=== PATIENT | female | born 1955 | race Caucasian/White ===

== ENCOUNTER 2021-08-07 19:53 | Emergency (ER) | payer MEDICARE, OTHER ==
[~2021-08-07] VITALS: Ht 160 cm; Wt 81.6 kg
[2021-08-07] MEDS ORDERED: SODIUM CHLORIDE 0.9% 500 ML IV ONE (20:45)
[2021-08-07] MEDS ORDERED: ACETAMINOPHEN 325 MG TAB PO ONE (20:45)
[2021-08-07] MEDS ORDERED: ONDANSETRON HCL 4 MG/2 ML VIAL IV ONE (20:45)
[2021-08-07 21:13] LABS: Basophils # (auto) 0.1 10 ^3/uL (0-0.2); Basophils % (auto) 1.4 % (0.0-2.0); Eosinophils # (auto) 0 10 ^3/uL (0-0.8); Eosinophils % (auto) 0.1 % (0.0-7.0); Hematocrit 48.2 % (36.0-46.0); Hemoglobin 17.1 g/dL (12.2-16.2); Lymphocytes # (auto) 1.2 10 ^3/uL (0.4-5.4); Lymphocytes % (auto) 17.9 % (10.0-50.0); Mean Corpuscular Hgb Conc. 35.5 g/dL (32.0-36.0); Mean Corpuscular Volume 90.2 fL (80.0-100.0); Monocytes # (auto) 0.3 10 ^3/uL (0-1.3); Monocytes % (auto) 4.9 % (0.0-12.0); Neutrophils # (auto) 5.3 10 ^3/uL (1.6-8.6); Neutrophils % (auto) 75.7 % (37.0-80.0); Nucleated Red Blood Cells % 0.2 %; Red Blood Cells 5.35 10^6/uL (4.0-5.20)
[2021-08-07] MEDS ORDERED: METOCLOPRAMIDE HCL 5MG/ml INJ 2ml VIAL IV ONE (21:15)
[2021-08-07 21:34] LABS: Albumin 4.6 g/dL (3.4-5.0); Calcium 10.5 mg/dL (8.5-10.1); Potassium 3.8 mmol/L (3.5-5.1)
[2021-08-07 21:36] LABS: BUN/Creatinine Ratio 17.2; Bilirubin, Total 0.7 mg/dL (0.2-1.0); Total Protein 8.6 g/dL (6.4-8.2)
[2021-08-07 21:45] LABS: Lactic Acid w/Reflex 2.6 mmol/L (0.4-2.0)
[2021-08-08] VITALS: BP 119/65
[2021-08-08] MEDS ORDERED: DexAMETHasone SOD PHOS 10MG/1ML VIAL INJ IV ONE
== END 2021-08-08 01:06 | disposition home or self-care (01) ==
LOC: EDBD 19:53 → ER 19:56
DX: U07.1 COVID-19 (principal); R05.9 Cough, unspecified; J45.909 Unspecified asthma, uncomplicated; I10 Essential (primary) hypertension; E11.9 Type 2 diabetes mellitus without complications; Z88.0 Allergy status to penicillin
CPT/HCPCS: 36415; 71045; 80053; 83605; 85025; 87426; 87804; 96374; 96375; 99284; J2405; J2765

== ENCOUNTER 2024-09-20 09:49 | Inpatient (IN) | payer MEDICARE ==
[~2024-09-20] VITALS: Ht 157.5 cm; Wt 79.9 kg
--- NOTE | 2024-09-20 10:12 | ED.PDOC ---
History of Present Illness HPI Comments 69F presents to the Er w/ prior MHx of Asthma, High Lipids, Pre-DM, HTN;SHx of Cyst Removal, Tubal Ligation, Tonsillectomy and the c/c of SOB. pt reports on being SOB x2 days w/ sternal Chest pressure, associated w/ N/, Dry heaves and the pt feeling "clammy" at home. Denies chills, fever, /V/D. No other ass ociated symptoms, modifiers, recent injuries or sick contacts present at this time. 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 Family History Family History: Reviewed,noncontributory to illness, Unknown Social History Smoker: Non-Smoker Alcohol: Denies ETOH Use Drugs: Denies Drug Use Lives In: Home Constitutional: denies: chills, diaphoresis, fatigue, fever, malaise, sweats, weakness, others EENTM: denies: blurred vision, double vision, ear bleeding, ear discharge, ear drainage, ear pain, ear ringing, eye pain, eye redness, hearing loss, mouth pain, mouth swelling, nasal discharge, nose bleeding, nose congestion, nose pain, photophobia, tearing, throat pain, throat swelling, voice changes, others Respiratory: reports: shortness of breath; denies: cough, hemoptysis, orthopnea, SOB at rest, SOB with excertion, stridor, wheezing, others Cardiovascular: reports: chest pain; denies: dizzy spells, diaphoresis, Dyspnea on exertion, edema, irregular heart beat, left arm pain, lightheadedness, palpitations, PND, syncope, others Gastrointestinal: denies: abdomen distended, abdominal pain, blood streaked bowels, constipated, diarrhea, dysphagia, difficulty swallowing, hematemesis, melena, nausea, poor appetite, poor fluid intake, rectal bleeding, rectal pain, vomiting, others Genitourinary: denies: abnormal vagina bleeding, burning, dyspareunia, dysuria, flank pain, frequency, hematuria, incontinence, pain, , vagina discharge, urgency, others Neurological: denies: dizziness, fainting, headache, left sided numbness, left sided weakness, numbness, paresthesia, pre-existing deficit, right sided numbness, right sided weakness, seizure, speech problems, tingling, tremors, weakness, others Musculoskeletal: denies: back pain, gout, joint pain, joint swelling, muscle pain, muscle stiffness, neck pain, others Integumetry: denies: bruises, change in color, change in hair/nails, dryness, laceration, lesions, lumps, rash, wounds, others Allergic/Immunocompromised: denies: Difficulty Healing, Frequent Infections, Hives, Itching, others Hematologic/Lymphatic: denies: anemia, blood clots, easy bleeding, easy bruising, swollen glands, others Endocrine: denies: excessive hunger, excessive sweating, excessive thirst, excessive urination, flushing, intolerance to cold, intolerance to heat, unexplained weight gain, unexplained weight loss, others Psychiatric: denies: anxiety, bipolar disorder, depression, hopeless, panic disorder, schizophrenia, sleepless, suicidal, others All Other Systems: Reviewed and Negative Physical Exam General Appearance: Moderate Distress HEENT: Normal ENT Inspection, Pharynx Normal, TMs Normal Neck: Full Range of Motion, Non-Tender, Normal, Normal Inspection Respiratory: Chest Non-Tender, Decreased Breath Sounds, Lungs Clear, No Accessory Muscle Use, Respiratory Distress Cardiovascular: No Edema, No JVD, No Murmur, No Gallop, Tachycardia Breast Exam: Deferred Gastrointestinal: No Organomegaly, Non Tender, No Pulsatile Mass, Normal Bowel Sounds, Soft Genitalia: Deferred Pelvic: Deferred Rectal: Deferred Extremities: No calf tenderness, Normal capillary refill, Normal inspection, Normal range of motion, Non-tender, No pedal edema Musculoskeletal : Apperance: Normal Neurologic: Alert, 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 Was a procedure done?: No EKG EKG : Pulse Rate (adult): 105 Harvey: Normal Cardiac Rhythm: NSR Block: None Hypertrophy: LAE, LVH ST: Normal Differential Dx Considerations may include: Generalized weakness, ACS, TN X-Ray, Labs, Meds, VS Vital Signs Date Time Temp Pulse Resp B/P (MAP) Pulse Ox O2 Delivery O2 Flow Rate FiO2 09/20/24 10:12 105 09/20/24 10:07 105 09/20/24 10:05 98.7 105 16 114/92 (99) 96 98.7 Lab Test 09/20/24 11:23 09/20/24 10:23 Range/Units Troponin I High Sensitivity Pending 76 *H </=34 ng/L White Blood Count 10.0 4.4-10.8 10^3/uL Red Blood Count 5.17 4.0-5.20 10^6/uL Hemoglobin 16.5 H 12.2-16.2 g/dL Hematocrit 48.0 H 36.0-46.0 % Mean Corpuscular Volume 92.8 80.0-100.0 fL Mean Corpuscular Hemoglobin 32.0 28.0-32.0 pg Mean Corpuscular Hemoglobin Concent 34.5 32.0-36.0 g/dL Red Cell Distribution Width 14.2 11.8-14.3 % Platelet Count 158 140-450 10^3/uL Mean Platelet Volume 10.7 6.9-10.8 fL Neutrophils (%) (Auto) 85.4 H 37.0-80.0 % Lymphocytes (%) (Auto) 9.7 L 10.0-50.0 % Monocytes (%) (Auto) 4.0 0.0-12.0 % Eosinophils (%) (Auto) 0.2 0.0-7.0 % Basophils (%) (Auto) 0.7 0.0-2.0 % Neutrophils # (Auto) 8.5 1.6-8.6 10 ^3/uL Lymphocytes # (Auto) 1.0 0.4-5.4 10 ^3/uL Monocytes # (Auto) 0.4 0-1.3 10 ^3/uL Eosinophils # (Auto) 0 0-0.8 10 ^3/uL Basophils # (Auto) 0.1 0-0.2 10 ^3/uL Nucleated Red Blood Cells 0.2 % D-Dimer, Quantitative 0.26 0.0-0.49 mg/L FEU Sodium Level 137 136-145 mmol/L Potassium Level 3.8 3.5-5.1 mmol/L Chloride Level 103 98-107 mmol/L Carbon Dioxide Level 23 20-31 mmol/L Anion Gap 11 5-15 Blood Urea Nitrogen 8 L 9-23 mg/dL Creatinine 0.68 0.550-1.02 mg/dL Glomerular Filtration Rate Calc 93 >90 mL/min BUN/Creatinine Ratio 11.8 10.0-20.0 Serum Glucose 140 H 74-106 mg/dL Calcium Level 10.1 8.7-10.4 mg/dL B-Type Natriuretic Peptide 564.21 0-100 pg/mL The patient's CBC is within normal limits The chemistry panel is within normal limits The BNP is 564.21 The 1st troponin came back at 76 We are awaiting the 2nd troponin to come back The D-dimer is within normal limits. At this time, the patient was being admitted Images Reviewed?: Images reviewed and evaluated by me Time of 1ST Reevaluation: 10:30 Reevaluation 1ST: Unchanged Patient Education/Counseling: Diagnosis, Treatment, Prognosis Family Education/Counseling: No Family Present Departure 1 Departure Time of Disposition: 11:33 Impression: Primary Impression: Shortness of breath Additional Impressions: Acute myocardial ischemia Elevated troponin Disposition: ADMITTED INPATIENT Admit to: [facility] Condition: Fair Critical Care Note Critical Care Time?: Yes (45 min-critical care time only) Stability Stability form required: Yes Unstable for transfer: Telemetry monitoring (Telemetry monitoring required), ED Physician Assesment (Clinical assesment) Heart Score Heart Score: Heart Score Response (Comments) Value History Moderate Suspicious 1 EKG Repolarization Disturb 1 Age >65 2 Risk Factors >3 or Hx ASHD 2 Troponin 1-2 x's Normal limit 1 Total 7 I personally scribed for CELSO GREENWOOD MD ([email or web address]) on 09/20/24 at 10:12. Electronically submitted by Eusebio Gordon ([email or web address]). CELSO GREENWOOD MD September 20, 2024 10:12
[2024-09-20 10:52] LABS: Basophils # (auto) 0.1 10 ^3/uL (0-0.2); Basophils % (auto) 0.7 % (0.0-2.0); Eosinophils # (auto) 0 10 ^3/uL (0-0.8); Eosinophils % (auto) 0.2 % (0.0-7.0); Hemoglobin 16.5 g/dL (12.2-16.2); Lymphocytes % (auto) 9.7 % (10.0-50.0); Mean Corpuscular Hgb Conc. 34.5 g/dL (32.0-36.0); Mean Corpuscular Volume 92.8 fL (80.0-100.0); Monocytes # (auto) 0.4 10 ^3/uL (0-1.3); Neutrophils # (auto) 8.5 10 ^3/uL (1.6-8.6); Neutrophils % (auto) 85.4 % (37.0-80.0); Nucleated Red Blood Cells % 0.2 %; Platelet Count (auto) 158 10^3/uL (140-450); Red Blood Cells 5.17 10^6/uL (4.0-5.20); Red Cell Distribution Width 14.2 % (11.8-14.3)
--- NOTE | 2024-09-20 10:56 | DVH ---
XY CHEST XRAY 1 VIEW, HISTORY: sob COMPARISON: CHEST PORTABLE on DOS: 08/07/21 CHEST PORTABLE on DOS: 08/07/21 TECHNICAL DATA: 1 view of the chest was obtained. FINDINGS: Lines and tubes: None Cardiomediastinal silhouette: normal Pulmonary vasculature: normal Lung expansion: normal Lung airspace: normal Lung interstitium: normal Pleura: normal Pneumothorax: no Bones: Unremarkable Other: no IMPRESSION: No acute intrathoracic abnormality.
[2024-09-20 11:01] LABS: Chloride 103 mmol/L (98-107); Potassium 3.8 mmol/L (3.5-5.1); Sodium 137 mmol/L (136-145)
[2024-09-20 11:02] LABS: Anion Gap 11 (5-15); Carbon Dioxide 23 mmol/L (20-31)
[2024-09-20 11:03] LABS: Calcium 10.1 mg/dL (8.7-10.4)
[2024-09-20 11:08] LABS: BUN/Creatinine Ratio 11.8 (10.0-20.0); Blood Urea Nitrogen 8 mg/dL (9-23); Glucose 140 mg/dL (74-106)
[2024-09-20 11:50] VITALS: PULSE 82; RESP 16; O2SAT 94
[2024-09-20 12:40] LABS: Urine Bacteria None Seen /hpf (None Seen)
--- NOTE | 2024-09-20 12:41 | DVHHP2 ---
History of Present Illness History of Present Illness 69F presents to the Er w/ prior MHx of Asthma, High Lipids, Pre-DM, HTN;SHx of Cyst Removal, Tubal Ligation, Tonsillectomy and the c/c of SOB. pt reports on being SOB x2 days w/ sternal Chest pressure, associated w/ N/, Dry heaves and the pt feeling "clammy" at home. she also has QUESADA, PND, orthopnea. has pleuritic chest pain with dry cough x1-2 week. Denies chills, fever, /V/D. No other associated symptoms, modifiers, recent injuries or sick contacts present at this time. Review of Systems Review of Systems as hpi Allergies: Coded Allergies: Penicillins (Verified Allergy, Unknown, 08/07/21) Exam Vital Signs Vital Signs Date Time Temp Pulse Resp B/P (MAP) Pulse Ox O2 Delivery O2 Flow Rate FiO2 09/20/24 11:50 98.2 82 16 149/82 (104) 94 98.2 09/20/24 11:50 Room Air* 0 21 Exam GEN: Healthy appearing, well-developed, NAD. HEENT: NC/AT; MMM. CV: RRR, no m/r/g. LUNGS: Rales up to middle lobes bilaterally ABD: Soft, NT/ND, NBS, no masses or organomegaly. EXT: skin Warm, well perfused. no rashes. Trace to +1 bilateral pitting edema NEURO: Ambulating with no limitations. No focal deficits. Labs/Xrays Labs Test 09/20/24 11:23 09/20/24 10:23 Range/Units Troponin I High Sensitivity 82 *H </=34 ng/L White Blood Count 10.0 4.4-10.8 10^3/uL Red Blood Count 5.17 4.0-5.20 10^6/uL Hemoglobin 16.5 H 12.2-16.2 g/dL Hematocrit 48.0 H 36.0-46.0 % Mean Corpuscular Volume 92.8 80.0-100.0 fL Mean Corpuscular Hemoglobin 32.0 28.0-32.0 pg Mean Corpuscular Hemoglobin Concent 34.5 32.0-36.0 g/dL Red Cell Distribution Width 14.2 11.8-14.3 % Platelet Count 158 140-450 10^3/uL Mean Platelet Volume 10.7 6.9-10.8 fL Neutrophils (%) (Auto) 85.4 H 37.0-80.0 % Lymphocytes (%) (Auto) 9.7 L 10.0-50.0 % Monocytes (%) (Auto) 4.0 0.0-12.0 % Eosinophils (%) (Auto) 0.2 0.0-7.0 % Basophils (%) (Auto) 0.7 0.0-2.0 % Neutrophils # (Auto) 8.5 1.6-8.6 10 ^3/uL Lymphocytes # (Auto) 1.0 0.4-5.4 10 ^3/uL Monocytes # (Auto) 0.4 0-1.3 10 ^3/uL Eosinophils # (Auto) 0 0-0.8 10 ^3/uL Basophils # (Auto) 0.1 0-0.2 10 ^3/uL Nucleated Red Blood Cells 0.2 % D-Dimer, Quantitative 0.26 0.0-0.49 mg/L FEU Sodium Level 137 136-145 mmol/L Potassium Level 3.8 3.5-5.1 mmol/L Chloride Level 103 98-107 mmol/L Carbon Dioxide Level 23 20-31 mmol/L Anion Gap 11 5-15 Blood Urea Nitrogen 8 L 9-23 mg/dL Creatinine 0.68 0.550-1.02 mg/dL Glomerular Filtration Rate Calc 93 >90 mL/min BUN/Creatinine Ratio 11.8 10.0-20.0 Serum Glucose 140 H 74-106 mg/dL Calcium Level 10.1 8.7-10.4 mg/dL B-Type Natriuretic Peptide 564.21 0-100 pg/mL Assessment/Plan Assessment/Plan Acute decompensated heart failure, diastolic likely, in exacerbation Acute bronchitis, viral likely Chest pain, ACS rule out Troponinemia BNP elevated Neutrophilia Chronic NSAID abuse History GERD ? History hiatal hernia History asthma History hyperlipidemia Prediabetes History hypertension - patient with shortness of breath, chest pain, - chest pain protocol -Tele -IV Lasix 20 b.i.d. -accuchecks achs -a1c and labs check -Daily labs, minimal CMP -Echo -Azithromycin IV antibiotic -Continue home medications -Duo nebs p.r.n. -Hold off NSAIDs - continue home meds (holding simvastatin 40 for inpatient, continue losartan 50, holding hydrochlorothiazide 25 for diuresis,, try to replace Lumigan eye drop,) Diet cardiac/diabetic DVT Lovenox GI prophylaxis-Protonix Tele Full code Plan discussed with: Patient Date of Service: September 20, 2024 Billing Provider: THIEN VO MD Common Visit Codes: [id number] INP/OBS CARE (HIGH) Secondary Visit Codes: [id number] CARE PLAN 30 MINUTES THIEN VO MD September 20, 2024 12:41
[2024-09-20 12:45] LABS: Urine Blood TRACE /uL (Negative); Urine Clarity Clear (Clear); Urine Color Light-Yellow (Yellow); Urine Protein, UAD Negative (Negative); Urine Specific Gravity 1.005 (1.001-1.035); Urine Squamous Epithelial Cell None Seen /hpf (<5); Urine Urobilinogen Normal (Negative); Urine WBC < 1 /HPF (0-5)
[2024-09-20] MEDS ORDERED: DEXTROSE (50%) 50ML SYRG IV PRN (12:45)
[2024-09-20] MEDS ORDERED: ACETAMINOPHEN 325 MG TAB PO PRN (12:45)
[2024-09-20] MEDS ORDERED: MORPHINE SULFATE INJ 2 MG/ml SYRG IV PRN (12:45)
[2024-09-20] MEDS ORDERED: HYDROcodone-ACET 5/325MG TAB PO PRN (12:45)
[2024-09-20] MEDS ORDERED: NITROGLYCERIN 0.4 MG SL TAB SL PRN (12:45)
[2024-09-20] MEDS: FUROSEMIDE 20 MG/2 ML VIAL IV ONE (12:45)
[2024-09-20] MEDS ORDERED: ONDANSETRON HCL 4 MG/2 ML VIAL IV PRN (12:45)
[2024-09-20 14:46] VITALS: BP_SYST 149; BP_SYST 184; BP_DIAS 73; BP_DIAS 83; PULSE 84; PULSE 92; RESP 14; RESP 18; TEMP 98.3; O2SAT 94; O2SAT 96
[2024-09-20] MEDS: PANTOPRAZOLE 40 MG/10 ML VIAL INJ IV ONE (14:57)
[2024-09-20] MEDS: LOSARTAN POTASSIUM 50 MG TAB PO SCH (14:58)
[2024-09-20] MEDS: ENOXAPARIN SOD 40 MG/0.4 ML SYRINGE SC SCH (14:58)
[2024-09-20] MEDS: AZITHROMYCIN 500MG/ 250ML 250 ML IV ONE (15:22)
[2024-09-20] MEDS: ACCU-CHEK COMFORT CURVE STRIP VI SCH (17:00)
[2024-09-20 17:27] VITALS: BP 153/84; PULSE 95; RESP 18; TEMP 98.1; O2SAT 95
[2024-09-20] MEDS: FUROSEMIDE 20 MG/2 ML VIAL IV SCH (18:19)
[2024-09-20 20:00] VITALS: PULSE 95; PULSE 98; RESP 16
[2024-09-20 21:00] VITALS: BP 136/66; PULSE 97; RESP 17; TEMP 97.1; O2SAT 91
[2024-09-21] VITALS (8 sets, daily range): BP systolic 104–147; BP diastolic 66–84; PULSE 88–110; RESP 17–18; TEMP 96.1–98.6; O2SAT 91–99
[2024-09-21 07:01] LABS: Basophils # (auto) 0.1 10 ^3/uL (0-0.2); Basophils % (auto) 0.9 % (0.0-2.0); Eosinophils # (auto) 0.2 10 ^3/uL (0-0.8); Eosinophils % (auto) 2.9 % (0.0-7.0); Hematocrit 48.6 % (36.0-46.0); Lymphocytes # (auto) 2.3 10 ^3/uL (0.4-5.4); Lymphocytes % (auto) 27.5 % (10.0-50.0); Mean Corpuscular Hemoglobin 32.2 pg (28.0-32.0); Mean Corpuscular Hgb Conc. 34.9 g/dL (32.0-36.0); Mean Corpuscular Volume 92.2 fL (80.0-100.0); Monocytes # (auto) 0.8 10 ^3/uL (0-1.3); Monocytes % (auto) 9.7 % (0.0-12.0); Platelet Count (auto) 187 10^3/uL (140-450); Red Blood Cells 5.27 10^6/uL (4.0-5.20); Red Cell Distribution Width 14.1 % (11.8-14.3); White Blood Cell 8.5 10^3/uL (4.4-10.8)
[2024-09-21 07:16] LABS: Alanine Aminotransferase 25 U/L (7-40); Albumin 4.5 g/dL (3.2-4.8); Alkaline Phosphatase 85 U/L (46-116); Anion Gap 10 (5-15); Aspartate Aminotransferase 18 U/L (13-40); BUN/Creatinine Ratio 14.8 (10.0-20.0); Blood Urea Nitrogen 12 mg/dL (9-23); Calcium 10.3 mg/dL (8.7-10.4); Carbon Dioxide 25 mmol/L (20-31); Chloride 103 mmol/L (98-107); Sodium 138 mmol/L (136-145); Total Protein 7.3 g/dL (5.7-8.2)
[2024-09-21 07:26] LABS: Bilirubin, Total 1.8 mg/dL (0.2-1.0); Glucose 116 mg/dL (74-106); Potassium 3.2 mmol/L (3.5-5.1)
[2024-09-21] MEDS: AZITHROMYCIN 500MG/ 250ML 250 ML IV SCH (08:55)
[2024-09-21] MEDS: PANTOPRAZOLE 40 MG/10 ML VIAL INJ IV SCH (10:00)
--- NOTE | 2024-09-21 10:27 | DVHSR ---
APPROVED REPORT EXAM: Two-dimensional and M-mode echocardiogram with Doppler and color Doppler. Blood Pressure: 129/68 mmHg INDICATION CHF syndrome, eval EF RISK FACTORS Height: 62, Weight: 176 DIMENSIONS LVDd3.6 (3.8-5.7cm)LA (2D)4.1 (1.9-4.0cm)Aortic Root3.5 (2.0-3.7cm) LVDs2.2 (2.5-4.0cm)LA (MM) (1.9-4.0cm)Aortic Cusp Exc (1.5-2.0cm) EF (%) 70.0 (55-70%)Rt. Atrium3.1 (1.9-4.0cm)Asc. Aorta cm Mitral Valve MitralMitral Stenosis E wave0.77m/sMV Mean GR.6mmHg A wave1.70m/sMV Peak GR.14mmHg E/A ratio0.52D MVAcm2 DECEL [id number] 1/2 [id number] IVRTmsDop MVA2.97cm2 Aortic Valve Aortic ValveAortic Stenosis LVOT Diameter1.4 (1.8-2.4cm)Doppler AVAcm2 Pulmonic Valve V21.49m/s Tricuspid Valve TR Velocity2.23m/s [id number] Other Information Technically limited study due to valsalva performed at the end of study before measurements. Conclusion lvef 65% severe concentric LVH small LV cavity normal rv function small pericardial effusion with significant fibrinous material in the space , no HD compromise no severe valve abnormalities noted
[2024-09-21] MEDS: POTASSIUM CHL 20 Meq TABLET PO ONE (14:00)
[2024-09-21] MEDS: POTASSIUM CHL 20MEQ/50ML 50 ML IV ONE (14:15)
[2024-09-21] MEDS: SODIUM CHL 0.9% 100 ML IV ONE (14:15)
--- NOTE | 2024-09-21 17:31 | DVHPN2 ---
Subjective Update 09/21 echo with preserved ejection fraction consistent with hypertensive cardiomyopathy. Patient approaching euvolemia we will slow down the diuresis to 20 IV daily. Start Jardiance and assess tolerance. Continue cardiac diet and water intake restrictions Reviewed: H&P Changes from previous H/P or p: No Changes General: Per HPI Objective Vitals Vital Signs Date Time Temp Pulse Resp B/P (MAP) Pulse Ox O2 Delivery O2 Flow Rate FiO2 09/21/24 13:30 98.5 95 18 147/84 (105) 96 98.5 09/21/24 08:00 Room Air* 0 21 Intake/Output Intake and Output 09/21/24 07:00 Intake Total 500 ml Balance 500 ml Intake Oral 250 ml IV Total 250 ml # Voids 5 Exam GEN: Healthy appearing, well-developed, NAD. HEENT: NC/AT; MMM. CV: RRR, no m/r/g. LUNGS: Rales up to bibasilar bilaterally ABD: Soft, NT/ND, NBS, no masses or organomegaly. EXT: skin Warm, well perfused. no rashes. Trace pitting edema NEURO: Ambulating with no limitations. No focal deficits. Medications Current Medications Medications Dose Ordered Sig/Domingo Route Start Time Stop Time Status Last Admin Dose Admin Acetaminophen/ Hydrocodone Bitart 1 tab Q4HP PRN PO 09/20/24 12:45 Ondansetron HCl 4 mg Q4HP PRN IV 09/20/24 12:45 Enoxaparin Sodium 40 mg DAILY SC 09/20/24 12:52 09/21/24 08:54 40 MG Acetaminophen 650 mg Q6HP PRN PO 09/20/24 12:45 Nitroglycerin 0.4 mg Q5MINP PRN SL 09/20/24 12:45 Morphine Sulfate 2 mg Q30M PRN IV 09/20/24 12:45 Azithromycin 250 ml @ 125 mls/hr DAILY IV 09/21/24 10:00 09/21/24 08:55 125 MLS/HR Diagnostic Test (Pha) 1 strip ACHS 09/20/24 17:00 09/21/24 17:27 1 STRIP Dextrose 50 ml UD PRN IV 09/20/24 12:45 Losartan Potassium 50 mg DAILY PO 09/20/24 12:50 09/21/24 08:54 50 MG Empaglifozin 10 mg DAILY PO 09/22/24 10:00 Furosemide 20 mg DAILY IV 09/22/24 10:00 Pantoprazole Sodium 40 mg DAILY@0600 PO 09/22/24 06:00 Laboratory Results Laboratory Tests 09/21/24 06:28 Chemistry Test 09/21/24 06:28 Albumin 4.5 g/dL (3.2-4.8) Calcium Level 10.3 mg/dL (8.7-10.4) Total Protein 7.3 g/dL (5.7-8.2) LFT Test 09/21/24 06:28 Alanine Aminotransferase (ALT) 25 U/L (7-40) Alkaline Phosphatase 85 U/L (46-116) Aspartate Amino Transferase (AST) 18 U/L (13-40) Total Bilirubin 1.8 mg/dL (0.2-1.0) H Urinalysis Test 09/20/24 12:39 Urine Color Light-yellow (Yellow) Urine Clarity Clear (Clear) Urine pH 6.0 (5.0-9.0) Urine Specific [place] 1.005 (1.001-1.035) Urine Protein Negative (Negative) Urine Ketones Negative (Negative) Urine Blood Trace /uL (Negative) H Urine Nitrite Negative (Negative) Urine Bilirubin Negative (Negative) Urine Urobilinogen Normal mg/dL (Negative) Urine Leukocyte Esterase Negative /uL (Negative) Urine RBC 1 /hpf (0 - 4) Urine Microscopic WBC < 1 /HPF (0-5) Urine Squamous Epithelial Cells None seen /hpf (<5) Urine Bacteria None seen /hpf (None Seen) Urine Glucose Normal mg/dL (Normal) Labs and/or images reviewed: Labs reviewed by me, Image(s) reviewed by me Assessment/Plan Assessment/Plan Update 09/21 echo with preserved ejection fraction consistent with hypertensive cardiomyopathy. Patient approaching euvolemia we will slow down the diuresis to 20 IV daily. Start Jardiance and assess tolerance. Continue cardiac diet and water intake restrictions Acute decompensated heart failure, diastolic likely, in exacerbation Acute bronchitis, viral likely Chest pain, ACS rule out Troponinemia BNP elevated Neutrophilia Chronic NSAID abuse History GERD ? History hiatal hernia History asthma History hyperlipidemia Prediabetes History hypertension - patient with shortness of breath, chest pain, - chest pain protocol -Tele -IV Lasix 20 b.i.d. -accuchecks achs -a1c and labs check -Daily labs, minimal CMP -Echo -Azithromycin IV antibiotic -Continue home medications -Duo nebs p.r.n. -Hold off NSAIDs - continue home meds (holding simvastatin 40 for inpatient, continue losartan 50, holding hydrochlorothiazide 25 for diuresis,, try to replace Lumigan eye drop,) Diet cardiac/diabetic DVT Lovenox GI prophylaxis-Protonix Tele Full code Plan discussed with: Patient My Orders Orders - THIEN VO MD Procedure Category Date Status Time Empagliflozin PHA 09/22/24 In Process (Jardiance) 10:00 Furosemide Injection PHA 09/22/24 In Process (Lasix Injection) 10:00 Maintain Fluid JUAN 09/21/24 In Process Restrictions 13:49 Strict I & O JUAN 09/21/24 In Process 13:49 Pantoprazole Tablet PHA 09/22/24 In Process (Protonix Tablet) 06:00 Date of Service: September 21, 2024 Billing Provider: THIEN VO MD Common Visit Codes: [id number] INP/OBS CARE(HIGH) THIEN VO MD September 21, 2024 17:31
[2024-09-21] MEDS ORDERED: FUROSEMIDE 40 MG/4 ML VIAL IV SCH (18:00)
[2024-09-22 01:00] VITALS: BP 89/55; PULSE 93; RESP 17; TEMP 98; O2SAT 94
[2024-09-22 05:00] VITALS: BP 121/44; PULSE 86; RESP 18; TEMP 98; O2SAT 92
[2024-09-22] MEDS: PANTOPRAZOLE 40 MG TAB PO SCH (06:00)
[2024-09-22 07:06] LABS: Alanine Aminotransferase 23 U/L (7-40); Albumin 4.3 g/dL (3.2-4.8); Alkaline Phosphatase 79 U/L (46-116); Anion Gap 9 (5-15); Aspartate Aminotransferase 16 U/L (13-40); BUN/Creatinine Ratio 23.8 (10.0-20.0); Bilirubin, Total 1.4 mg/dL (0.2-1.0); Blood Urea Nitrogen 19 mg/dL (9-23); Calcium 9.9 mg/dL (8.7-10.4); Carbon Dioxide 25 mmol/L (20-31); Chloride 107 mmol/L (98-107); Glucose 112 mg/dL (74-106); Potassium 3.8 mmol/L (3.5-5.1); Sodium 141 mmol/L (136-145); Total Protein 6.8 g/dL (5.7-8.2)
[2024-09-22 08:00] VITALS: PULSE 88
[2024-09-22 08:30] VITALS: BP 121/75; PULSE 92; RESP 18; TEMP 98.1; O2SAT 96
[2024-09-22] MEDS: FUROSEMIDE 20 MG/2 ML VIAL IV SCH (09:45)
[2024-09-22] MEDS: EMPAGLIFLOZIN 10 MG TAB PO SCH (09:47)
[2024-09-22 13:00] VITALS: BP 116/56; PULSE 94; RESP 18; TEMP 97.9; O2SAT 93
[2024-09-22] MEDS ORDERED: EMPA1TAB PO (13:02)
[2024-09-22] MEDS ORDERED: FURO20TA4 PO (13:02)
--- NOTE | 2024-09-22 13:11 | DVHDS2 ---
Discharge Summary Date of Admission September 20, 2024 at 12:41 Date of Discharge: September 22, 2024 Labs/Diagnostic Data: Laboratory Results Test 09/22/24 11:04 09/22/24 06:21 09/21/24 06:28 09/20/24 13:46 POC Glucose 153 mg/dl (70-106) Sodium Level 141 mmol/L (136-145) Potassium Level 3.8 mmol/L (3.5-5.1) Chloride Level 107 mmol/L (98-107) Carbon Dioxide Level 25 mmol/L (20-31) Anion Gap 9 (5-15) Blood Urea Nitrogen 19 mg/dL (9-23) Creatinine 0.80 mg/dL (0.550-1.02) Glomerular Filtration Rate Calc 79 mL/min (>90) BUN/Creatinine Ratio 23.8 (10.0-20.0) Serum Glucose 112 mg/dL (74-106) Calcium Level 9.9 mg/dL (8.7-10.4) Total Bilirubin 1.4 mg/dL (0.2-1.0) Aspartate Amino Transferase (AST) 16 U/L (13-40) Alanine Aminotransferase (ALT) 23 U/L (7-40) Alkaline Phosphatase 79 U/L (46-116) Total Protein 6.8 g/dL (5.7-8.2) Albumin 4.3 g/dL (3.2-4.8) White Blood Count 8.5 10^3/uL (4.4-10.8) Red Blood Count 5.27 10^6/uL (4.0-5.20) Hemoglobin 17.0 g/dL (12.2-16.2) Hematocrit 48.6 % (36.0-46.0) Mean Corpuscular Volume 92.2 fL (80.0-100.0) Mean Corpuscular Hemoglobin 32.2 pg (28.0-32.0) Mean Corpuscular Hemoglobin Concent 34.9 g/dL (32.0-36.0) Red Cell Distribution Width 14.1 % (11.8-14.3) Platelet Count 187 10^3/uL (140-450) Mean Platelet Volume 10.6 fL (6.9-10.8) Neutrophils (%) (Auto) 59.0 % (37.0-80.0) Lymphocytes (%) (Auto) 27.5 % (10.0-50.0) Monocytes (%) (Auto) 9.7 % (0.0-12.0) Eosinophils (%) (Auto) 2.9 % (0.0-7.0) Basophils (%) (Auto) 0.9 % (0.0-2.0) Neutrophils # (Auto) 5.0 10 ^3/uL (1.6-8.6) Lymphocytes # (Auto) 2.3 10 ^3/uL (0.4-5.4) Monocytes # (Auto) 0.8 10 ^3/uL (0-1.3) Eosinophils # (Auto) 0.2 10 ^3/uL (0-0.8) Basophils # (Auto) 0.1 10 ^3/uL (0-0.2) Nucleated Red Blood Cells 0.0 % Troponin I High Sensitivity 84 ng/L (</=34) Test 09/20/24 12:39 09/20/24 10:23 Urine Color Light-yellow (Yellow) Urine Clarity Clear (Clear) Urine pH 6.0 (5.0-9.0) Urine Specific [place] 1.005 (1.001-1.035) Urine Protein Negative (Negative) Urine Ketones Negative (Negative) Urine Blood Trace /uL (Negative) Urine Nitrite Negative (Negative) Urine Bilirubin Negative (Negative) Urine Urobilinogen Normal mg/dL (Negative) Urine Leukocyte Esterase Negative /uL (Negative) Urine RBC 1 /hpf (0 - 4) Urine Microscopic WBC < 1 /HPF (0-5) Urine Squamous Epithelial Cells None seen /hpf (<5) Urine Bacteria None seen /hpf (None Seen) Urine Glucose Normal mg/dL (Normal) D-Dimer, Quantitative 0.26 mg/L FEU (0.0-0.49) B-Type Natriuretic Peptide 564.21 pg/mL (0-100) Other Laboratory Tests 09/22/24 06:21 09/21/24 06:28 Brief Hx & Hospital Course: HPI 69F presents to the Er w/ prior MHx of Asthma, High Lipids, Pre-DM, HTN;SHx of Cyst Removal, Tubal Ligation, Tonsillectomy and the c/c of SOB. pt reports on being SOB x2 days w/ sternal Chest pressure, associated w/ N/, Dry heaves and the pt feeling "clammy" at home. she also has QUESADA, PND, orthopnea. has pleuritic chest pain with dry cough x1-2 week. Denies chills, fever, /V/D. No other associated symptoms, modifiers, recent injuries or sick contacts present at this time. Summary: Patient presented with shortness of breath, dyspnea on exertion, PND, orthopnea, dry cough with pleuritic chest pain. In ED workup showing BNP elevated, Troponinemia low grade, rales bilaterally in lower lobes, trace pitting edema. On echo showing severe concentric hypertrophy consistent with likely hypertensive cardiomyopathy, EF 65%. Patient was started on IV Lasix diuresis and diuresis well. She was euvolemic by day 3 09/22/2024. Given HFpEF patient will be started on Jardiance. Home losartan was continued. For concern for bronchitis patient was given azithromycin IV. On 09/22/2024 patient was euvolemic, tolerating p.o., ambulating, all function intact. Patient is stable for discharge as per plan below. Diagnosis: Acute decompensated heart failure, diastolic likely, in exacerbation Acute bronchitis, viral likely Chest pain, ACS rule out Troponinemia, type 2 likely, due to above BNP elevated Neutrophilia Chronic NSAID abuse History GERD ?History hiatal hernia History asthma History hyperlipidemia Prediabetes History hypertension Discharge plan: -Start Jardiance 10 mg daily, furosemide 20 mg tablet daily. Medications were fax[facility] to [facility] ([facility] -Continue taking losartan. no need for any other blood pressure medications at this time. Okay to take and continue other home medications -Urgent follow up outpatient with Cardiology - follow up with PCP to review discharge -Limit salt and fluid intake. Salt less than 2 g per day. Fluid intake less than 2 L per day Condition at Discharge: Fair Final Diagnosis/Problems List Acute decompensated heart failure, diastolic likely, in exacerbation Acute bronchitis, viral likely Chest pain, ACS rule out Troponinemia, type 2 likely, due to above BNP elevated Neutrophilia Chronic NSAID abuse History GERD ?History hiatal hernia History asthma History hyperlipidemia Prediabetes History hypertension Discharge Disposition: Home Discharge Instruct/Medications Diet: Cardiac 2g Na,low cholest Activity: No Restrictions, As Tolerated Follow Up/Referral: PCP, cardiology Medications: Below Discharge Statement: "Patient was advised to return to the ER or call 911 if any headaches, dizziness, shortness of breath, chest pain, abdominal pain, bleeding, fevers, or worsening of medical condition. Patient was counseled about treatment plan, medications, possible side effects, patient�verbalized understanding. All questions were answered to the best of my ability. This discharge took greater then 30 minutes in planning, reviewing documentation, counseling the patient, and discussing with other team members." Date of Service: September 22, 2024 Billing Provider: THIEN VO MD Common Visit Codes: [id number] DISCH DAY >30min THIEN VO MD September 22, 2024 13:11
[2024-09-22 17:00] VITALS: BP 113/50; PULSE 97; RESP 18; TEMP 97.8; O2SAT 92
--- NOTE | 2024-09-23 13:58 | ECG ---
[facility] Test Date: 2024-09-20 Test Time: 10:07:25 Pat Name: NAREN REYES Department: ER Room: 0223T A Gender: F Reel Man: DR WATKINS: 1955 Requested By: CELSO GREENWOOD Order Number: [id number] Reading MD: Kyler Monge Measurements Intervals [place] Rate: 105 P: 87 MT: 145 QRS: 81 QRSD: 88 T: 2 QT: 373 QTc: 494 Interpretive Statements Sinus tachycardia Probable left atrial enlargement Borderline right axis deviation Left ventricular hypertrophy Nonspecific T abnormalities, lateral leads Borderline prolonged QT interval Electronically Signed On 09-24-2024 20:34:13 PDT by Kyler Monge Please click the below link to view image of tracing.
== END 2024-09-22 20:45 | disposition home or self-care (01) | DRG 280 ==
LOC: ER 09:49 → OVERFLOW 12:41 → TELE-CENTR 15:55
PROVIDERS: ADMIT Student in an Organized Health Care Education/Training Program; ATTEND Student in an Organized Health Care Education/Training Program
DX: I11.0 Hypertensive heart disease with heart failure (principal); I50.33 Acute on chronic diastolic (congestive) heart failure; I21.A1 Myocardial infarction type 2; I24.9 Acute ischemic heart disease, unspecified; J20.8 Acute bronchitis due to other specified organisms; I51.3 Intracardiac thrombosis, not elsewhere classified; I42.9 Cardiomyopathy, unspecified; F19.10 Other psychoactive substance abuse, uncomplicated; D71 Functional disorders of polymorphonuclear neutrophils; J45.909 Unspecified asthma, uncomplicated; K21.9 Gastro-esophageal reflux disease without esophagitis; E78.5 Hyperlipidemia, unspecified; K44.9 Diaphragmatic hernia without obstruction or gangrene; Z88.0 Allergy status to penicillin; R73.03 Prediabetes
CPT/HCPCS: 36415; 71045; 80048; 80053; 81001; 82962; 83880; 84484; 85025; 85379; 93005; 93306; 96372; 99291; G0378; J2470